=== PATIENT | female | born 1975 | race Caucasian/White ===

== ENCOUNTER 2023-12-19 01:31 | Emergency (ER) | payer OTHER, SELFPAY ==
--- NOTE | ~2023-12-19 | XR_ITS ---
Left Shoulder Technique: AP and scapular Y views were obtained. Clinical History: Pain Findings: No fracture or dislocation is seen. Osseous alignment is anatomic. The glenohumeral and acr omioclavicular joint spaces are preserved. Soft tissues are unremarkable. Impression: Unremarkable left shoulder radiographs. Reviewed, dictated and finalized at [facility]. Impression: Unremarkable left shoulder radiographs.
--- NOTE | ~2023-12-19 | XR_ITS ---
Left elbow Technique: AP, oblique, and lateral views were obtained. Clinical History: Pain Findings: No acute fracture or dislocation is seen. Osseous alignment is anatomic. Joint spaces are p reserved. There is no displacement of the fat pads, and soft tissues are unremarkable. Impression: Unremarkable radiographs. Reviewed, dictated and finalized at location . Impression: Unremarkable radiographs.
--- NOTE | ~2023-12-19 | XR_ITS ---
Left wrist Technique: PA, oblique, lateral, and ulnar deviation views were obtained. Clinical History: Pain Findings: No acute fracture or dislocation is seen. Osseous alignment is anatomic. Joint spaces are p reserved. Soft tissues are unremarkable. Impression: Unremarkable left wrist radiographs. Reviewed, dictated and finalized at location . Impression: Unremarkable left wrist radiographs.
[2023-12-19 01:33] VITALS: BP 188/96; PULSE 78; RESP 18; TEMP 36.2; O2SAT 100
[2023-12-19] MEDS: methocarbamoL 750 MG TABLET 1500 MG PO (02:09)
[2023-12-19] MEDS: HYDROcodone/acetaminophen (*CRX) 5-325 MG TABLET 1 TAB PO (02:10)
[2023-12-19] MEDS: IBUPROFEN 400 MG TABLET 800 MG PO (02:10)
--- NOTE | 2023-12-19 02:14 | ED.GENADULT ---
HPI - General Adult General Chief complaint: Fall Stated complaint: fall down 10-12 steps, L shoulder injury Time Seen by Provider: 12/19/23 01:47 History of Present Illness HPI narrative: this is a 48-year-old female presenting after a fall. She was walking on some stairs when she lost her balance. She landed on her left side and slid down on her left arm. She is currently complaining of left shoulder left elbow and left wrist pain. She denies head trauma or loss of consciousness. No other injuries. No use blood thinners. Denies use of alcohol. Related Data Allergies Allergy/AdvReac Type Severity Reaction Status Date / Time No Known Allergies Allergy Mild Verified 11/16/17 07:20 Exam Narrative: APPEARANCE: No apparent distress. Head: atraumatic. EYES: EOMI, NOSE: Atraumatic NECK: Trachea midline RESPIRATORY: No increased rate of breathing CARDIOVASCULAR: RRR, ABDOMINAL: Non-distended MUSCULOSKELETAl: focal exam left upper extremity revealed no obvious deformities. Shoulder exam revealed no tenderness over the clavicle or scapula. Pain with active motion of the shoulder. Elbow exam revealed no obvious swelling/bruising. Range of motion intact some pain. Exam of the wrist showed some bruising over the dorsal aspect without significant swelling. No tenderness anatomic snuffbox. Management Advisor strength intact. Cap refill less than 2 seconds NEURO: Alert. Moving 4/4 extremities SKIN:: Warm, dry. Normal color PSYCHIATRIC: Normal affect Course Vital Signs Vital signs: Vital Signs Temperature 97.2 F L 12/19/23 01:33 Pulse Rate 78 12/19/23 01:33 Respiratory Rate 18 12/19/23 01:33 Blood Pressure 188/96 H 12/19/23 01:33 Pulse Oximetry 100 12/19/23 01:33 Oxygen Delivery Room Air 12/19/23 01:33 Temperature 97.2 F L 12/19/23 01:33 Pulse Rate 78 12/19/23 01:33 Respiratory Rate 18 12/19/23 01:33 Blood Pressure 188/96 H 12/19/23 01:33 Pulse Oximetry 100 12/19/23 01:33 Oxygen Delivery Room Air 12/19/23 01:33 Medical Decision Making [facility] Narrative Medical decision making narrative: -Course: 48-year-old presenting after a fall down the stairs. shoulder/elbow without obvious fracture. I do not see definitive fracture on the wrist x-ray, but she does have significant bruising and tenderness. Patient will be placed in a wrist splint and given a sling. Official reads will occur in the morning. The patient will be discharged with pain medication and primary care follow-up. -DDX includes but is not limited to: Bony injury, soft tissue injury -Social determinants of health: unemployed, lives alone -Independent interpretation of studies: shoulder, elbow, and wrist negative for fracture. Official read will occur in the morning. -Interventions: Robaxin, Motrin, Wiley -Shared decision making / Disposition: discharged. -RX Motrin Tylenol Robaxin Vital Signs Vital Signs: Vital Signs Temperature 97.2 F L 12/19/23 01:33 Pulse Rate 78 12/19/23 01:33 Respiratory Rate 18 12/19/23 01:33 Blood Pressure 188/96 H 12/19/23 01:33 Pulse Oximetry 100 12/19/23 01:33 Oxygen Delivery Room Air 12/19/23 01:33 Temperature 97.2 F L 12/19/23 01:33 Pulse Rate 78 12/19/23 01:33 Respiratory Rate 18 12/19/23 01:33 Blood Pressure 188/96 H 12/19/23 01:33 Pulse Oximetry 100 12/19/23 01:33 Oxygen Delivery Room Air 12/19/23 01:33 Discharge Plan Discharge Clinical Impression: Fall Patient Disposition: Home, Self-Care Condition: Stable Instructions: Antibiotic Form, Wrist Injury (ED) Additional Instructions: Please use Motrin Tylenol and Robaxin for pain control. Please follow-up with your primary care physician. Please return if you develop severe pain weakness to her hand. Prescriptions: New ibuprofen 800 mg tablet 800 mg PO TID PRN (Reason: pain) 7 Days Qty: 21 0RF acetaminophen 500 mg tablet 1,000 mg PO TID PRN (Reason: vahe
[2023-12-19 03:32] VITALS: BP 176/94; PULSE 86; RESP 18; O2SAT 98
== END 2023-12-19 03:33 | disposition home or self-care (01) ==
PROVIDERS: Emergency Provider Emergency Medicine; PCP Nurse Practitioner Family
DX: S60.212A Contusion of left wrist, initial encounter (principal); S49.92XA Unspecified injury of left shoulder and upper arm, initial encounter; S59.902A Unspecified injury of left elbow, initial encounter; W10.9XXA Fall (on) (from) unspecified stairs and steps, initial encounter
CPT/HCPCS: 73030; 73080; 73110; 99284; A4565; A9270

== ENCOUNTER 2023-12-22 23:34 | Emergency (ER) | payer OTHER, SELFPAY ==
--- NOTE | ~2023-12-22 | CT_ITS ---
EXAMINATION: CT wrist LT wo con DATE: 12/23/2023 01:57 INDICATION: Left wrist injury. TECHNIQUE: Computed tomography (CT) of the left wrist was performed without intravenous contrast. Aut omated exposure control and iterative reconstruction technique were employed. The dose-length product was 381.69 mGy-cm. COMPARISON: Left wrist radiographs 12/23/2023 FINDINGS: Bone alignment is normal. No fracture. There is mild osteoarthritis of triscaphe joint and first carpometacarpal joint. There is subcutaneous edema of the wrist, worst dorsally. IMPRESSION: 1. Mild polyarticular osteoarthritis. Reviewed, dictated and finalized at location E.
--- NOTE | ~2023-12-22 | XR_ITS ---
EXAMINATION: XR forearm LT 2V DATE: 12/23/2023 00:56 INDICATION: Left forearm injury. TECHNIQUE: 2 views of left forearm were obtained. COMPARISON: Left elbow radiographs 12/19/2023 FINDINGS: Bone alignment is normal. No fracture. There is mild osteoarthritis of first carpometacarpa l joint. IMPRESSION: 1. No fracture. Reviewed, dictated and finalized at location E. IMPRESSION: 1. No fracture.
--- NOTE | ~2023-12-22 | XR_ITS ---
EXAMINATION: XR hand LT min 3V DATE: 12/23/2023 00:56 INDICATION: Left hand injury. TECHNIQUE: 3 views of left hand were obtained. COMPARISON: None. FINDINGS: Bone alignment is normal. No fracture. There is mild osteoarthritis of triscaphe joint and first carpometacarpal joint. IMPRESSION: 1. Mild polyarticular osteoarthritis. Reviewed, dictated and finalized at location E.
--- NOTE | ~2023-12-22 | XR_ITS ---
EXAMINATION: XR wrist LT min 3V DATE: 12/23/2023 00:56 INDICATION: Left wrist injury. TECHNIQUE: 4 views of left wrist were obtained. COMPARISON: None. FINDINGS: Bone alignment is normal. No acute fracture. There is mild osteoarthritis of triscaphe join t and first carpometacarpal joint. IMPRESSION: 1. Mild polyarticular osteoarthritis. Reviewed, dictated and finalized at location E.
[2023-12-22 23:35] VITALS: BP 154/136; PULSE 82; RESP 16; TEMP 36.6; O2SAT 100
--- NOTE | 2023-12-23 01:22 | ED.GENADULT ---
HPI - General Adult General Chief complaint: Extremity Injury, Upper Stated complaint: left wrist pain/injury Time Seen by Provider: 12/22/23 23:51 History of Present Illness HPI narrative: Patient is a 48-year-old female who presents to the emergency department this evening complaining of left wrist pain. Approximately 1 week ago, patient fell landed on her left forearm. Patient did present to our emergency department and had x-rays of her left wrist, left elbow and left shoulder which revealed no acute process. Patient was placed in Willi wrap and instructed follow up with her primary care physician which she has not been able to get in to see. Patient states that she continues to have left wrist pain which is worse with any wrist movements. Patient denies any recent injuries since her fall 1 week ago. She denies any numbness or tingling and is currently denying any additional symptoms. There are no other modifying, alleviating, or precipitating factors at this time Related Data Allergies Allergy/AdvReac Type Severity Reaction Status Date / Time No Known Allergies Allergy Mild Verified 11/16/17 07:20 Review of Systems Review of Systems: All systems are reviewed and are negative unless stated otherwise in the HPI. PMFSH Comments Patient denies any significant past medical or surgical history, denies any pertinent family history denies any alcohol abuse or illicit drug use. Exam Narrative: General: Alert, awake, afebrile, in no acute distress. HEENT: PERRL, no rhinorrhea, no post nasal drip, oropharynx clear. Neck: Trachea midline, no JVD, no lymphadenopathy. Cardiovascular: Regular rate and rhythm, no murmurs, rubs or gallops, no peripheral edema. Respiratory: Clear to auscultation bilaterally, no tachypnea, no wheezing, no rhonchi, no rubs, no respiratory distress. Abdomen: Soft, nontender, nondistended, no rebound, no guarding, no peritoneal signs. Musculoskeletal: Swelling and ecchymosis to the dorsum of the left wrist with decreased left wrist range of motion due to pain. Tenderness to palpation along the distal radioulnar joint, mild tenderness to palpation over the anatomical snuffbox. Skin: No rashes or petechia, no signs of infection. Psychiatric: Alert and oriented, normal behavior and judgment for situation. Neurological: Alert and oriented to person, place, and time. Follows all commands. No focal deficits, speech is clear and fluent. Course Vital Signs Vital signs: Vital Signs Temperature 98 F 12/22/23 23:35 Pulse Rate 82 12/22/23 23:35 Respiratory Rate 16 12/22/23 23:35 Blood Pressure 154/136 H 12/22/23 23:35 Pulse Oximetry 100 12/22/23 23:35 Oxygen Delivery Room Air 12/22/23 23:35 Temperature 98 F 12/22/23 23:35 Pulse Rate 82 12/22/23 23:35 Respiratory Rate 16 12/22/23 23:35 Blood Pressure 154/136 H 12/22/23 23:35 Pulse Oximetry 100 12/22/23 23:35 Oxygen Delivery Room Air 12/22/23 23:35 Medical Decision Making MDM Narrative Medical decision making narrative: The patient was evaluated by myself in the emergency department. History is obtained from patient who is an independent historian and physical exam was performed. External medical records were reviewed at this time. Patient was administered 50 mg of IM Toradol for pain. Imaging studies obtained included left hand, wrist and forearm x-rays which was independently interpreted by me revealing no acute fracture, which is pending final radiology interpretation. At this time, a CT of the patient's left wrist without IV contrast was obtained and reviewed by me revealing no fracture or subluxation, no hematoma. Soft tissue swelling along the medial wrist with mild joint effusion. Patient was informed of these findings at bedside. Patient states that the Toradol did not alleviate her pain and its management should 1 oral [place] 5-325 mg. Differential diagnosis considerations include left wrist sprain swapna
[2023-12-23] MEDS: KETOROLAC 30 MG/ML VIAL (*BKC) 15 MG IM (01:38)
[2023-12-23] MEDS: HYDROcodone/acetaminophen (*CRX) 5-325 MG TABLET 1 TAB PO (02:58)
[2023-12-23 03:05] VITALS: BP 144/102; PULSE 87; RESP 18; O2SAT 100
== END 2023-12-23 03:05 | disposition home or self-care (01) ==
PROVIDERS: Emergency Provider Emergency Medicine; PCP Nurse Practitioner Family
DX: S63.502A Unspecified sprain of left wrist, initial encounter (principal); S66.912A Strain of unspecified muscle, fascia and tendon at wrist and hand level, left hand, initial encounter; W19.XXXA Unspecified fall, initial encounter
CPT/HCPCS: 73090; 73110; 73130; 73200; 96372; 99284; A9270; J1885